=== PATIENT | male | born 1970 | race Two or more races ===

== ENCOUNTER 2017-12-11 15:21 | Emergency (ER) | payer OTHER ==
--- NOTE | 2017-12-11 15:40 | EDPHY ---
H & P Time Seen by Provider: 12/11/17 15:39 HPI/ROS: CHIEF COMPLAINT: Right forearm laceration HISTORY OF PRESENT ILLNESS: Works at the [employer], cut his right forearm unintentionally on a piece of broken porcelain. No foreign body sensation and no weakness or numbness distally. REVIEW OF SYSTEMS: Negative PAST MEDICAL HISTORY: Otherwise negative, tetanus 1 year ago Social history: Work injury General Appearance: Alert and conversant, cooperative. 7 cm right volar mid forearm laceration which is superficial. Normal motor in all 5 digits, normal capillary refill and radial pulse, normal sensory and radial ulnar and medial nerve distributions. Emergency Department course/MDM: Procedure: Laceration repair. Verbal consent was obtained from the patient. The 7 cm laceration on the right volar forearm was anesthetized using 0.5% bupivacaine with epinephrine. The wound was irrigated with standard emergency department protocol, draped and explored. There were no deep structures involved. No tendon injury was identified. No foreign body found. The wound was repaired with 4 0 Prolene. The wound repair was simple. Excellent hemostasis was obtained. Wound care instructions were discussed and the patient was warned regarding scarring. The procedure was performed by myself. Smoking Status: Never smoked Constitutional: Initial Vital Signs Temperature (C) 37.2 C 12/11/17 15:33 Heart Rate 106 H 12/11/17 15:33 Respiratory Rate 16 12/11/17 15:33 Blood Pressure 155/103 H 12/11/17 15:33 O2 Sat (%) 93 12/11/17 15:33 O2 Delivery Mode Room Air Allergies/Adverse Reactions: No Known Allergies Allergy (Unverified 12/11/17 15:35) Home Medications: Medication Instructions Recorded NK [No Known Home Meds] 12/11/17 MDM/Departure - Depart Disposition: Home, Routine, Self-Care Clinical Impression: Laceration of right forearm without foreign body Qualifiers: Encounter type: initial encounter Qualified Code(s): S51.811A - Laceration without foreign body of right forearm, initial encounter Condition: Good Instructions: Laceration (ED) Additional Instructions: Wound Care Follow-Up: Removal of sutures in 10 days. Suture removal is complimentary in uncomplicated cases. Infection or abnormal findings would require reevaluation by the MD. In that case, you may be billed. Referrals: Work Comp Ref/Restrictions [Outside] - As per Instructions
[2017-12-11 16:15] VITALS: BP 115/78
== END 2017-12-11 16:19 | disposition home or self-care (01) ==
PROC: 0HQDXZZ Repair Right Lower Arm Skin, External Approach (ICD-10-PCS; principal; 2017-12-11)
DX: S51.811A Laceration without foreign body of right forearm, initial encounter (principal); W25.XXXA Contact with sharp glass, initial encounter; Y99.0 Civilian activity done for income or pay